=== PATIENT | male | born 1955 | race Caucasian/White ===

== ENCOUNTER 2021-02-13 13:40 | Outpatient (CLI) | payer MEDICARE | END 2021-02-13 23:59 | disposition home or self-care (01) | LOC: WOUND 13:40 | PROVIDERS: ATTEND Internal Medicine | DX: T25.292D Burn of second degree of multiple sites of left ankle and foot, subsequent encounter (principal); T25.332A Burn of third degree of left toe(s) (nail), initial encounter; T31.0 Burns involving less than 10% of body surface; I10 Essential (primary) hypertension; E78.5 Hyperlipidemia, unspecified; I25.2 Old myocardial infarction; K21.9 Gastro-esophageal reflux disease without esophagitis; I48.91 Unspecified atrial fibrillation; E66.01 Morbid (severe) obesity due to excess calories; F17.290 Nicotine dependence, other tobacco product, uncomplicated; Z68.26 Body mass index [BMI] 26.0-26.9, adult; Z79.01 Long term (current) use of anticoagulants; Z79.899 Other long term (current) drug therapy; Z90.89 Acquired absence of other organs; Z98.890 Other specified postprocedural states; X08.8XXA Exposure to other specified smoke, fire and flames, initial encounter; Y93.89 Activity, other specified; Y92.89 Other specified places as the place of occurrence of the external cause; Y99.8 Other external cause status | CPT/HCPCS: 16020; G0463 ==

== ENCOUNTER 2021-02-20 09:06 | Outpatient (CLI) | payer MEDICARE | END 2021-02-20 23:59 | disposition home or self-care (01) | LOC: WOUND 09:06 | PROVIDERS: ATTEND Internal Medicine | DX: T25.332D Burn of third degree of left toe(s) (nail), subsequent encounter (principal); T25.292D Burn of second degree of multiple sites of left ankle and foot, subsequent encounter; T31.0 Burns involving less than 10% of body surface; I25.2 Old myocardial infarction; I10 Essential (primary) hypertension; E78.5 Hyperlipidemia, unspecified; F17.210 Nicotine dependence, cigarettes, uncomplicated; I48.91 Unspecified atrial fibrillation; Z98.61 Coronary angioplasty status; X08.8XXD Exposure to other specified smoke, fire and flames, subsequent encounter | CPT/HCPCS: 16020 ==

== ENCOUNTER 2021-03-06 08:23 | Outpatient (CLI) | payer MEDICARE | END 2021-03-06 23:59 | disposition home or self-care (01) | LOC: WOUND 08:23 | PROVIDERS: ATTEND Internal Medicine | DX: T25.332D Burn of third degree of left toe(s) (nail), subsequent encounter (principal); T25.292D Burn of second degree of multiple sites of left ankle and foot, subsequent encounter; T31.0 Burns involving less than 10% of body surface; I25.2 Old myocardial infarction; I10 Essential (primary) hypertension; E78.5 Hyperlipidemia, unspecified; F17.210 Nicotine dependence, cigarettes, uncomplicated; I48.91 Unspecified atrial fibrillation; Z98.61 Coronary angioplasty status; X08.8XXD Exposure to other specified smoke, fire and flames, subsequent encounter | CPT/HCPCS: 16020; 97597 ==

== ENCOUNTER 2021-03-20 09:11 | Outpatient (CLI) | payer MEDICARE | END 2021-03-20 23:59 | disposition home or self-care (01) | LOC: WOUND 09:11 | PROVIDERS: ATTEND Internal Medicine | DX: T25.292D Burn of second degree of multiple sites of left ankle and foot, subsequent encounter (principal); I10 Essential (primary) hypertension; E78.5 Hyperlipidemia, unspecified; K21.9 Gastro-esophageal reflux disease without esophagitis; I25.2 Old myocardial infarction; I48.91 Unspecified atrial fibrillation; F17.210 Nicotine dependence, cigarettes, uncomplicated; E66.01 Morbid (severe) obesity due to excess calories; Z68.26 Body mass index [BMI] 26.0-26.9, adult; Z98.61 Coronary angioplasty status; X08.8XXD Exposure to other specified smoke, fire and flames, subsequent encounter | CPT/HCPCS: G0463 ==